=== PATIENT | male | born 1995 | race Caucasian/White ===

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

== ENCOUNTER 2017-02-26 12:13 | Emergency (ER) | payer MEDICAID ==
[~2017-02-26] VITALS: Ht 172.7 cm; Wt 61.2 kg
[2017-02-26 13:08] VITALS: BP 136/83
== END 2017-02-26 13:17 | disposition home or self-care (01) ==
LOC: EDUNIT# 12:13 → ER 12:13
DX: S60.221A Contusion of right hand, initial encounter (principal); J45.909 Unspecified asthma, uncomplicated; F17.210 Nicotine dependence, cigarettes, uncomplicated; W51.XXXA Accidental striking against or bumped into by another person, initial encounter; Y93.89 Activity, other specified; Y99.8 Other external cause status; Y92.098 Other place in other non-institutional residence as the place of occurrence of the external cause
CPT/HCPCS: 73130

== ENCOUNTER 2020-04-25 14:22 | Emergency (ER) | payer MEDICAID, OTHER ==
[~2020-04-25] VITALS: Ht 172.7 cm; Wt 72.6 kg
[2020-04-25 15:21] LABS: Urine Bacteria NONE SEEN /hpf (None Seen); Urine Blood Negative /uL (Negative); Urine Mucus FEW (None Seen); Urine WBC <1 /hpf (0 - 3)
[2020-04-25 15:23] LABS: Basophils # (auto) 0.1 10 ^3/uL (0-0.2); Basophils % (auto) 1.1 % (0.0-2.0); Eosinophils # (auto) 0.1 10 ^3/uL (0-0.8); Eosinophils % (auto) 1.3 % (0.0-7.0); Hematocrit 43.7 % (41.0-53.0); Hemoglobin 14.5 g/dL (13.5-17.5); Lymphocytes # (auto) 1.7 10 ^3/uL (0.4-5.4); Lymphocytes % (auto) 28.9 % (10.0-50.0); Mean Corpuscular Hemoglobin 30.8 pg (28.0-32.0); Mean Corpuscular Hgb Conc. 33.2 g/dL (32.0-36.0); Mean Corpuscular Volume 92.8 fL (80.0-100.0); Monocytes # (auto) 0.6 10 ^3/uL (0-1.3); Neutrophils # (auto) 3.5 10 ^3/uL (1.6-8.6); Neutrophils % (auto) 58.7 % (37.0-80.0); Nucleated Red Blood Cells % 0.1 %; Platelet Count (auto) 222 10^3/uL (140-450); Red Blood Cells 4.71 10^6/uL (4.5-5.90); Red Cell Distribution Width 14.4 % (11.8-14.3); White Blood Cell 5.9 10^3/uL (4.4-10.8)
[2020-04-25 15:42] LABS: Anion Gap 6 (5-15); Blood Urea Nitrogen 8 mg/dL (7-18); Calcium 8.9 mg/dL (8.5-10.1); Carbon Dioxide 24 mmol/L (21-32); Chloride 111 mmol/L (98-107); Glucose 93 mg/dL (74-106); Sodium 141 mmol/L (136-145)
[2020-04-25 15:42] LABS: Alcohol, Urine < 3.0 mg/dL (0-10); Amphetamine Screen, Urine NEGATIVE (NEGATIVE); Barbiturate Scree,Urine NEGATIVE (NEGATIVE); Benzodiazephine Screen, Urine NEGATIVE (NEGATIVE); Cannabinoid Screen, Urine POSITIVE (NEGATIVE); Cocaine Screen, Urine NEGATIVE (NEGATIVE); Opiate Scree,Urine NEGATIVE (NEGATIVE); Phencyclidine Screen, Urine NEGATIVE (NEGATIVE)
[2020-04-25 15:43] LABS: Salicylate 2.5 mg/dL (2.8-20.0)
[2020-04-25 15:45] LABS: Acetaminophen < 2.0 ug/mL (10-30)
[2020-04-25] MEDS ORDERED: LORazepam 0.5 MG TAB PO ONE ×2 (15:45→20:30)
[2020-04-25 15:46] LABS: Alanine Aminotransferase 108 U/L (16-61); Alkaline Phosphatase 67 U/L (45-117); Aspartate Aminotransferase 70 U/L (15-37); BUN/Creatinine Ratio 12.1; Bilirubin, Total 0.6 mg/dL (0.2-1.0); GFR African American 194 mL/min; GFR Non-African American 160 mL/min; Total Protein 6.9 g/dL (6.4-8.2)
[2020-04-25 15:47] LABS: Blood Alcohol < 3.0 mg/dL (0-5)
[2020-04-25] MEDS ORDERED: LORazepam 2MG/ML-1ML VIAL IM ONE (21:00)
[2020-04-25] MEDS ORDERED: diphenhdrAMINE HCL 50 MG/1 ML VL IM ONE (21:00)
[2020-04-25] MEDS ORDERED: HALOPERIDOL LACTATE 5 MG/ML INJ VIAL IM ONE (21:00)
[2020-04-26] MEDS ORDERED: TEMAZEPAM 15 MG CAP PO ONE (20:30)
[2020-04-26] MEDS ORDERED: LORazepam 0.5 MG TAB PO ONE (21:30)
[2020-04-27] MEDS ORDERED: LORazepam 0.5 MG TAB PO ONE (12:30)
[2020-04-27 14:43] VITALS: BP 124/72
== END 2020-04-27 19:26 | disposition home or self-care (01) ==
LOC: EDBD 14:22 → ER 14:22 → EDUNIT# 14:22 → ER 04-27 19:26
DX: R45.851 Suicidal ideations (principal); F12.10 Cannabis abuse, uncomplicated
CPT/HCPCS: 36415; 71045; 80053; 80307; 80320; 80329; 81001; 85025; 96372; 99285; J1200; J1630; J2060